=== PATIENT | female | born 1975 | race Caucasian/White ===

== ENCOUNTER 2025-01-10 18:12 | Emergency (ER) | payer SELFPAY ==
[~2025-01-10] VITALS: Ht 167.6 cm; Wt 67.1 kg
[2025-01-10 19:17] LABS: BASOPHILS # (AUTO) 0.1 (0.0-0.1); BASOPHILS % 0.8 % (0.0-1.0); EOSINOPHILS # (AUTO) 0.1 (0.0-0.4); HEMATOCRIT 41.6 % (34.2-44.1); HEMOGLOBIN 14.1 g/dL (12.0-16.0); LYMPHOCYTES # (AUTO) 2.2 (1.0-3.2); LYMPHOCYTES % 26.6 % (18.0-39.1); MEAN CORPUSCULAR HEMOGLOBIN 31.2 pg (28-32); MEAN CORPUSCULAR HGB CONC 33.9 g/dL (31-35); MONOCYTES # (AUTO) 0.7 (0.2-0.8); MONOCYTES % 8.4 % (4.4-11.3); NEUTROPHILS # (AUTO) 5.2 (2.1-6.9); NEUTROPHILS % 62.7 % (38.7-80.0); PLATELET COUNT 493 x10e3/uL (140-360); RED BLOOD COUNT 4.52 x10e6/uL (3.6-5.1); RED CELL DISTRIBUTION WIDTH 13.2 % (11.7-14.4); WHITE BLOOD COUNT 8.24 x10e3/uL (4.8-10.8)
[2025-01-10 19:19] LABS: AMPHETAMINES SCREEN,URINE POSITIVE (NEGATIVE); BENZODIAZEPINES SCREEN,URINE POSITIVE (NEGATIVE); CANNABINOIDS SCREEN,URINE NEGATIVE (NEGATIVE); COCAINE SCREEN,URINE NEGATIVE (NEGATIVE); METHADONE SCREEN, URINE NEGATIVE (NEGATIVE); OPIATES SCREEN,URINE NEGATIVE (NEGATIVE); PHENCYCLIDINE SCREEN,URINE NEGATIVE (NEGATIVE)
[2025-01-10 19:37] LABS: ALANINE AMINOTRANSFERASE 15 IU/L (0-55); ALBUMIN 3.7 g/dL (3.5-5.0); ALBUMIN/GLOBULIN RATIO 1.5 (0.8-2.0); ALKALINE PHOSPHATASE 57 IU/L (40-150); ANION GAP 16.2 mmol/L (8-16); BILIRUBIN,TOTAL 0.3 mg/dL (0.2-1.2); BLOOD UREA NITROGEN 12 mg/dL (7-26); BUN/CREATININE RATIO 12 (6-25); CALCIUM 8.4 mg/dL (8.4-10.2); CARBON DIOXIDE 23 mmol/L (22-29); CHLORIDE 105 mmol/L (98-107); CREATINE KINASE 124 IU/L (29-168); CREATININE, SERUM 1.01 mg/dL (0.57-1.11); EST GLOMERULAR FILTRATION RATE 67 ML/MIN (>=60); GLUCOSE 80 mg/dL (74-118); SODIUM 141 mmol/L (136-145); TOTAL PROTEIN 6.2 g/dL (6.5-8.1)
[2025-01-10 19:38] LABS: POTASSIUM 3.2 mmol/L (3.5-5.1)
[2025-01-10 19:43] LABS: TROPONIN I < 0.001 ng/mL (0-0.300)
[2025-01-10 19:49] VITALS: PULSE 82; RESP 16
[2025-01-10 19:57] VITALS: PULSE 91; RESP 18; O2SAT 99
[2025-01-10] MEDS: ALBUTEROL/IPRATROPIUM 3 ML NEB NEB STA (19:57)
[2025-01-10 20:09] VITALS: RESP 18
[2025-01-10] MEDS: LORAZEPAM INJ 2 MG/ML VIAL IV STA (20:09)
[2025-01-10] MEDS ORDERED: IOPAMIDOL 370 MG/ML 100 ML INFUS..BTL INJ ONE (20:38)
[2025-01-10 22:03] VITALS: TEMP 98.3; O2SAT 98
[2025-01-10] MEDS ORDERED: AZITHROMYCIN250 MG PO (22:10)
[2025-01-10] MEDS ORDERED: PREDNISONE20 MG PO (22:10)
[2025-01-10] MEDS ORDERED: VENTOLIN HFA18 GM INH (22:10)
[2025-01-10 22:25] VITALS: PULSE 78
== END 2025-01-10 22:25 | disposition home or self-care (01) ==
LOC: ER 18:16
DX: R06.00 Dyspnea, unspecified (principal); J32.9 Chronic sinusitis, unspecified; J45.909 Unspecified asthma, uncomplicated; F41.9 Anxiety disorder, unspecified; F32.A Depression, unspecified
CPT/HCPCS: 36415; 70491; 71045; 80053; 80307; 80320; 82550; 83690; 83880; 84484; 85025; 93005; 94640; 94799; 99284; J2060; Q9967